=== PATIENT | female | born 1975 | race Caucasian/White ===

== ENCOUNTER 2016-08-07 18:58 | Emergency (ER) | payer BC, OTHER ==
[2016-08-07 19:31] VITALS: PULSE 78; BMI 33.6
--- NOTE | 2016-08-07 20:05 | PDOC ---
*Physical Exam - Vital Signs Last Vital Signs Temp Pulse Resp BP Pulse Ox 97.5 F L 78 14 156/96 100 08/07/16 19:29 08/07/16 19:29 08/07/16 19:29 08/07/16 19:29 08/07/16 19:29 Medical Decision Making - Medical Decision Making 08/07/16 20:05 agree with care from [facility] *DC/Admit/Observation/Transfer Diagnosis at time of Disposition: Lightheaded - Patient Instructions Printed Discharge Instructions: Tetanus, Diphtheria, and Pertussis Vaccine Additional Instructions: As discussed, please take the antibiotics as prescribed by your doctor. If you experience any new headache, fever, chills, dizziness, slurred speech, change in vision, or any new or worsening symptoms, please return to the ED.
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
[2016-08-07 20:50] VITALS: BP 145/70; TEMP 98.8
== END 2016-08-07 20:50 | disposition home or self-care (01) ==
LOC: JER 18:58
DX: R42 Dizziness and giddiness (principal); Y04.1XXA Assault by human bite, initial encounter; Y93.89 Activity, other specified; Y92.89 Other specified places as the place of occurrence of the external cause; Y99.0 Civilian activity done for income or pay
CPT/HCPCS: 99283-25

== ENCOUNTER 2017-11-30 13:36 | Emergency (ER) | payer BC, OTHER ==
[2017-11-30 13:45] VITALS: TEMP 98.5; BMI 37.5
--- NOTE | 2017-11-30 15:10 | PDOC ---
History of Present Illness - General Chief Complaint: Blood Pressure Problem Stated Complaint: HIGH BLOOD PRESSURE Time Seen by Provider: 11/30/17 14:04 - History of Present Illness Initial Comments: 11/30/17 15:03 42 yo F with no significant pmh who p/w HTN. Patient reports isolated high blood pressure (SBP 150) at outside office.Patient reports that she was at ENT physician office or seasonal sinus pressure and allergies. Patient has been home medicating with Flonase and nasal rinses. No other complaints. Reports intermittent racing heart rate. Patient increased anxiety d/t of recent family members. Denies F/C, MAYA, vision change, N/V, CP, palpitations, orthopnea, leg swelling, cough,m hemoptysis, SOB, abdominal pain, diarrhea, constipation, urinary complaints, weakness, vertigo, lightheadedness, sensory changes. PMHx: as noted above. On Amlodipine 5 mg. Denies h/o PE/DVT.Denies h/o ACS/MA. Denies h/o abnml stress testing or echo. ROS: as noted above SHx: Denies tobacco, Etoh, or IVDA. No recent travels. Allergies: PCN Past History - Past Medical History Allergies/Adverse Reactions: Allergies Allergy/AdvReac Type Severity Reaction Status Date / Time Penicillins Allergy Verified 11/30/17 13:45 Home Medications: Ambulatory Orders Amlodipine Besylate [Norvasc -] 5 mg PO DAILY 11/30/17 COPD: No HTN: Yes - Suicide/Smoking/Psychosocial Hx Smoking Status: Yes Smoking History: Never smoked Have you smoked in the past 12 months: No Number of Cigarettes Smoked Daily: 0 If you are a former smoker, when did you quit?: 2016 Information on smoking cessation initiated: No Hx Alcohol Use: No Drug/Substance Use Hx: No Review of Systems - Review of Systems Comments:: 11/30/17 15:10 GENERAL/CONSTITUTIONAL: No fever or chills. No weakness. HEAD, EYES, EARS, NOSE AND THROAT: No change in vision. No ear pain or discharge. No sore throat. CARDIOVASCULAR: No chest pain or shortness of breath RESPIRATORY: No cough, wheezing, or hemoptysis. GASTROINTESTINAL: No nausea, vomiting, diarrhea or constipation. GENITOURINARY: No dysuria, frequency, or change in urination. MUSCULOSKELETAL: No joint or muscle swelling or pain. No neck or back pain. SKIN: No rash NEUROLOGIC: No headache, vertigo, loss of consciousness, or change in strength/ sensation. ENDOCRINE: No increased thirst. No abnormal weight change HEMATOLOGIC/LYMPHATIC: No anemia, easy bleeding, or history of blood clots. ALLERGIC/IMMUNOLOGIC: No hives or skin allergy. *Physical Exam - Vital Signs Last Vital Signs Temp Pulse Resp BP Pulse Ox 98.5 F 102 H 20 160/93 100 11/30/17 13:42 11/30/17 13:42 11/30/17 13:42 11/30/17 13:42 11/30/17 14:52 - Physical Exam Comments: 11/30/17 15:10 GENERAL: Awake, alert, and fully oriented, in no acute distress HEAD: No signs of trauma, normocephalic, atraumatic EYES: PERRLA, EOMI, sclera anicteric, conjunctiva clear ENT: Auricles normal inspection, hearing grossly normal, nares patent, oropharynx clear without exudates. Moist mucosa NECK: Normal ROM, supple, no lymphadenopathy, JVD, or masses LUNGS: No distress, speaks full sentences, clear to auscultation bilaterally HEART: Regular rate and rhythm, normal S1 and S2, no murmurs, rubs or gallops, peripheral pulses normal and equal bilaterally. ABDOMEN: Soft, nontender, normoactive bowel sounds. No guarding, no rebound. No masses EXTREMITIES : Normal inspection, Normal range of motion, no edema. No clubbing or cyanosis. NEUROLOGICAL: Cranial nerves II through XII grossly intact. Normal speech, normal gait, no focal sensorimotor deficits. SKIN: Warm, Dry, normal turgor, no rashes or lesions noted ED Treatment Course - LABORATORY CBC & Chemistry Diagram: 11/30/17 15:30 11/30/17 15:30 Medical Decision Making - Medical Decision Making 11/30/17 15:10 42 yo F with no significant pmh who p/w HTN. BP 160/93, HR 102, nn hypoxic and AF. Patient with no complaints currently asymptomatic. No clinical s/s , evidence of end organ dysfunction. Low suspicion of CVA/TIA, MA, pulmonary edema , ARF. Low suspicion of PE based on Weils criteria. Will assess for underlying electrolyte abnml, toxic or metabolic derangements, or acid-base disturbances. ED Course: CBC,CMP,Cardiac Pr EKG 11/30/17 15:[address] Mari patient HTN most likely 2/2 recent social stresses. Patient to f/u with Dr. Espinosa. 11/30/17 16:16 EKG: NSR with PVC's, and normal interval duration and nml axis. Absent ANAY, or STD. CBC,CMP: Unremarkable trop: Neg Pt. stable for d/c with return precautions. Advised to f/u with PMD. *DC/Admit/Observation/Transfer Diagnosis at time of Disposition: Hypertension Qualifiers: Hypertension type: unspecified Qualified Code(s): I10 - Essential (primary) hypertension - Discharge Dispostion Disposition: HOME Condition at time of disposition: Stable Decision to Admit order: No - Referrals Referrals: Arnaldo Schilling MD [Primary Care Provider] - Donal Freed MD [Staff Physician] - - Patient Instructions Printed Discharge Instructions: DI for High Blood Pressure Additional Instructions: Please return to the emergency department with any new or worsening symptoms or concerns. Please follow up with your primary care physician within 72 hours. - Post Discharge Activity - Attestations Physician Attestion: 11/30/17 15:14 I attest to the information provided in this note.
[2017-11-30 15:45] VITALS: BP 144/98; PULSE 94
[2017-11-30 15:45] LABS: BASO % 0.7 % (0-2.0); HEMATOCRIT 38.3 % (32.4-45.2); HEMOGLOBIN 12.5 GM/dL (10.7-15.3); MCH 24.3 pg (25.7-33.7); MCHC 32.7 g/dl (32.0-36.0); MEAN CELL VOLUME 74.1 fl (80-96); MEAN PLT VOLUME 8.2 fl (7.5-11.1); MONO % 6.8 % (3.8-10.2); NEUT % 75.5 % (42.8-82.8); PLATELET COUNT 371 K/MM3 (134-434); RBC 5.16 M/mm3 (3.60-5.2); RDW 18.3 % (11.6-15.6); WHITE BLOOD COUNT 9.3 K/mm3 (4.0-10.0)
--- NOTE | 2017-11-30 16:05 | PDOC ---
Attending Attestation - Resident Resident Name: [email or web address] - ED Attending Attestation I have performed the following: I have examined & evaluated the patient, The case was reviewed & discussed with the resident, I agree w/resident's findings & plan, Exceptions are as noted - HPI HPI: 11/30/17 16:05 42 y F with h/o htn, here from ent office for noted elevated bp. 150/90. pt denies dizziness, no cp no sob. is followed by computer application developer. dr. castrejon, who she spoke to over the phone told to come to ed. pt has been under lots of stress recently, is compliant wiht amlodipine 5 mg. no gan, no leg swelling. no other complaints. - Physicial Exam PE: 11/30/17 16:06 awake alert lungs clear bilaterally heart rrr no mrg. abd soft nt nd. skin warm and dry. nuero alert oriented x 3 gait normal. speech clear. moves all ext. - Medical Decision Making 11/30/17 16:01 42 yo F with h/o hypertension on amlodipine, here from ENT office for incidental elevated bp. 150/90. pt denies feeling dizzy or lightheaded.no change to vision. no n/v no cp no sob. no leg swelling. was concerned so came to ed for evaluation differential anemia, renal injury plan ekg r/o end organ damage. labs 11/30/17 16:07 pt seen by computer application developer dr. castrejon in ed, agrees with plan basic labs ekg and if unremarkable. will fu outpt. Heart Score/ECG Review #1 General ECG Interpretation: Sinus Rhythm, Normal Rate (85), Normal Intervals, No acute ischemic changes Compared to previous ECG there are: Other (occasional pvc.)
[2017-11-30 16:08] LABS: ANION GAP 9 (8-16); BILIRUBIN,TOTAL 0.4 mg/dL (0.2-1.0); BLOOD UREA NITROGEN 7 mg/dL (7-18); CALCIUM 8.7 mg/dL (8.5-10.1); CHLORIDE 105 mmol/L (98-107); CO2 24 mmol/L (21-32); CREATININE 0.5 mg/dL (0.55-1.02); GLUCOSE,RANDOM 77 mg/dL (74-106); POTASSIUM 3.6 mmol/L (3.5-5.1); SGOT/AST 20 U/L (15-37); SGPT/ALT 23 U/L (12-78); SODIUM 138 mmol/L (136-145); TOT PROT 7.8 g/dl (6.4-8.2)
[2017-11-30 16:10] LABS: ALK PHOS 64 U/L (45-117)
--- NOTE | 2017-12-03 00:29 | EKG ---
Test Reason : Blood Pressure : / mmHG Vent. Rate : 085 BPM Atrial Rate : 085 BPM P-R Int : 162 ms QRS Dur : 086 ms QT Int : 386 ms P-R-T Axes : 061 037 051 degrees QTc Int : 459 ms SINUS RHYTHM WITH OCCASIONAL PREMATURE VENTRICULAR COMPLEXES POSSIBLE LEFT ATRIAL ENLARGEMENT BORDERLINE ECG WHEN COMPARED WITH ECG OF 23-JAN-2017 13:16, NO SIGNIFICANT CHANGE WAS FOUND Confirmed by CHELLE PORTILLO MD ([id number]) on 12/03/2017 12:29:42 AM Referred By: Confirmed By:CHELLE PORTILLO MD
== END 2017-11-30 16:25 | disposition home or self-care (01) ==
LOC: JER 13:36
DX: I10 Essential (primary) hypertension (principal); J30.2 Other seasonal allergic rhinitis
CPT/HCPCS: 36415; 80053; 84484; 85025; 93005; 93010; 99283-25